=== PATIENT | male | born 1990 | race Caucasian/White ===

== ENCOUNTER 2023-12-12 15:41 | Outpatient (CLI) | payer OTHER, SELFPAY ==
[2023-12-12 18:15] LABS: Basophils Percent Auto 0.6 % (0.2-1.2); Eosinophils Absolute Auto 0.1 K/mm3 (0-0.3); Eosinophils Percent Auto 0.9 % (0-4.4); Hematocrit 40.9 % (42.0-52.0); Hemoglobin 13.4 g/dL (14.0-18.0); Immature Granulocyte Absolute 0.01 K/mm3 (0.00-0.031); Immature Granulocyte Percent A 0.2 % (0-0.5); Lymphocytes Absolute Auto 2.24 K/mm3 (0.9-3.2); Lymphocytes Percent Auto 33.9 % (18.3-44.2); Mean Corpuscular HGB Conc 32.8 g/dl (32-36); Mean Corpuscular Volume 88.5 fl (80-100); Mean Platelet Volume 9.7 fl (7.4-10.4); Monocytes Absolute Auto 0.5 K/mm3 (0.1-0.6); Monocytes Percent Auto 7.9 % (2.6-8.5); Neutrophils Absolute Auto 3.7 K/mm3 (1.3-6.7); Neutrophils Percent Auto 56.5 % (45.5-73.1); Platelet Count Result 257 k/mm3 (150-375); Red Blood Count 4.62 M/mm3 (4.6-6.20); Red Cell Distribution Width 12.2 % (11.5-14.5); White Blood Count 6.6 K/mm3 (4.5-10.0)
[2023-12-12 19:00] LABS: Alanine Aminotransferase 31 U/L (6-50); Albumin Level 4.7 g/dL (3.5-5.1); Alkaline Phosphatase 73 U/L (38-126); Anion Gap 5 mmol/L (8-16); Aspartate Amino Transferase 44 U/L (17-59); Bilirubin,Total 0.5 mg/dL (0.2-1.3); Blood Urea Nitrogen 14 mg/dL (9-20); Calcium 9.6 mg/dL (8.4-10.2); Carbon Dioxide 32 mmol/L (22-30); Chloride 103 mmol/L (98-107); Cholesterol 158 mg/dL (0-200); Estimated Glomerular Filt Rate > 60; Glucose 84 mg/dL (65-110); HDL Direct 68 mg/dL; Potassium 4.5 mmol/L (3.4-5.0); Sodium 140 mmol/L (137-145); Triglycerides 67 mg/dL (<150)
[2023-12-12 19:15] LABS: LDL Cholesterol Direct 74 mg/dL
[2023-12-13 09:43] LABS: Folic Acid 15.7 ng/mL (2.76->20)
== END 2023-12-12 15:42 | disposition home or self-care (01) ==
LOC: ANHGOSHLAB 15:42
PROVIDERS: PCP Internal Medicine; Visit Provider Internal Medicine
DX: Z13.0 Encounter for screening for diseases of the blood and blood-forming organs and certain disorders involving the immune mechanism (principal); Z13.220 Encounter for screening for lipoid disorders; Z13.29 Encounter for screening for other suspected endocrine disorder; Z13.228 Encounter for screening for other metabolic disorders; D64.9 Anemia, unspecified
CPT/HCPCS: 36415; 80053; 80061; 82607; 82746; 85025

== ENCOUNTER 2024-05-21 10:12 | Outpatient (CLI) | payer OTHER, SELFPAY | END 2024-05-21 10:13 | disposition home or self-care (01) | LOC: ANHGOSHLAB 10:13 | PROVIDERS: PCP Internal Medicine; Visit Provider Internal Medicine | DX: D64.9 Anemia, unspecified (principal) | CPT/HCPCS: 36415; 82728 ==

== ENCOUNTER 2024-08-09 10:26 | Outpatient (CLI) | payer OTHER, SELFPAY ==
[2024-08-09 19:00] LABS: Basophils Percent Auto 0.6 % (0.2-1.2); Eosinophils Absolute Auto 0.1 K/mm3 (0-0.3); Eosinophils Percent Auto 1.1 % (0-4.4); Hematocrit 40.7 % (42.0-52.0); Hemoglobin 13.1 g/dL (14.0-18.0); Immature Granulocyte Absolute 0.02 K/mm3 (0.00-0.031); Immature Granulocyte Percent A 0.4 % (0-0.5); Lymphocytes Percent Auto 33.7 % (18.3-44.2); Mean Corpuscular HGB Conc 32.2 g/dl (32-36); Mean Corpuscular Hemoglobin 28.7 pg (26-34); Mean Corpuscular Volume 89.3 fl (80-100); Mean Platelet Volume 9.9 fl (7.4-10.4); Monocytes Absolute Auto 0.5 K/mm3 (0.1-0.6); Monocytes Percent Auto 9.7 % (2.6-8.5); Neutrophils Absolute Auto 2.6 K/mm3 (1.3-6.7); Neutrophils Percent Auto 54.5 % (45.5-73.1); Platelet Count Result 250 k/mm3 (150-375); Red Blood Count 4.56 M/mm3 (4.6-6.20); Red Cell Distribution Width 12.3 % (11.5-14.5); White Blood Count 4.8 K/mm3 (4.5-10.0)
== END 2024-08-09 10:27 | disposition home or self-care (01) ==
LOC: ANHGOSHLAB 10:28
PROVIDERS: PCP Internal Medicine; Visit Provider Internal Medicine
DX: D64.9 Anemia, unspecified (principal)
CPT/HCPCS: 36415; 85025

== ENCOUNTER 2024-08-29 14:25 | Outpatient (CLI) | payer OTHER, SELFPAY ==
[2024-08-29 16:41] LABS: Immature Reticulocyte Fraction 2.2 % (3.0-15.9); Reticulocyte Hemoglobin Conten 32.9 pg (28.2-36.6); Reticulocyte Percent 0.65 % (0.7-4.3); Reticulocytes Absolute 0.03 10^6/uL (0.02-0.10)
[2024-08-29 17:41] LABS: Thyroid Stimulating Hormone 0.835 uIU/mL (0.465-4.680)
[2024-09-04 15:39] LABS: Testosterone Free 73.7 pg/mL (35.0-155.0); Testosterone Total 618 ng/dL (250-1100)
== END 2024-08-29 14:26 | disposition home or self-care (01) ==
LOC: ANHGOSHLAB 14:26
PROVIDERS: PCP Internal Medicine; Visit Provider Internal Medicine
DX: D64.9 Anemia, unspecified (principal)
CPT/HCPCS: 36415; 84402; 84403; 84443; 85046

== ENCOUNTER 2024-11-28 09:59 | Outpatient (CLI) | payer OTHER, SELFPAY ==
[2024-11-28 10:20] LABS: Basophils Percent Auto 0.7 % (0.2-1.2); Eosinophils Percent Auto 1.3 % (0-4.4); Hematocrit 42.1 % (42.0-52.0); Hemoglobin 13.9 g/dL (14.0-18.0); Immature Granulocyte Absolute 0.01 K/mm3 (0.00-0.031); Immature Granulocyte Percent A 0.3 % (0-0.5); Immature Reticulocyte Fraction 2.6 % (3.0-15.9); Lymphocytes Absolute Auto 1.36 K/mm3 (0.9-3.2); Lymphocytes Percent Auto 45.6 % (18.3-44.2); Mean Corpuscular Hemoglobin 29.1 pg (26-34); Mean Corpuscular Volume 88.1 fl (80-100); Mean Platelet Volume 9.2 fl (7.4-10.4); Monocytes Absolute Auto 0.3 K/mm3 (0.1-0.6); Monocytes Percent Auto 11.1 % (2.6-8.5); Neutrophils Absolute Auto 1.2 K/mm3 (1.3-6.7); Platelet Count Result 275 k/mm3 (150-375); Red Blood Count 4.78 M/mm3 (4.6-6.20); Red Cell Distribution Width 11.9 % (11.5-14.5); Reticulocyte Hemoglobin Conten 34.4 pg (28.2-36.6); Reticulocyte Percent 0.75 % (0.7-4.3); Reticulocytes Absolute 0.04 10^6/uL (0.02-0.10)
[2024-11-28 11:17] LABS: Chloride 101 mmol/L (98-107)
[2024-11-28 11:22] LABS: Alanine Aminotransferase 23 U/L (6-50); Albumin Level 4.9 g/dL (3.5-5.1); Alkaline Phosphatase 59 U/L (38-126); Anion Gap 10 mmol/L (4-12); Aspartate Amino Transferase 42 U/L (17-59); Bilirubin,Total 0.9 mg/dL (0.2-1.3); Blood Urea Nitrogen 14 mg/dL (9-20); Calcium 9.5 mg/dL (8.4-10.2); Carbon Dioxide 29 mmol/L (22-30); Estimated Glomerular Filt Rate > 60; Glucose 90 mg/dL (65-110); Potassium 3.9 mmol/L (3.4-5.0); Sodium 140 mmol/L (137-145)
[2024-11-28 11:29] LABS: Iron 123 ug/dL (49-181)
[2024-11-28 11:38] LABS: Percent Iron Saturation 32 % (20-50)
[2024-11-28 12:06] LABS: IFOB Positive Control Positive; Immunochemical Fecal Occult Bl Positive (N)
[2024-11-28 12:22] LABS: Folic Acid 8.6 ng/mL (2.76->20)
--- OUTSIDE RECORDS SUMMARY | 2024-11-29 22:58 | XMS_ITS | Clinical Summary ---
Author Organization [facility] Andrea rosales Bev Address [address] [place] [address] Care Team Providers Care Manufacturing Maintenance Manager Name Role Phone Caesar Dang DO Primary Care Provider Allergies No known active allergies Medications No known medications Active Problems No known active problems Encounters Date Type Department Care Team Description 11/29/2024 External Device Data STL ABSTRACTION Provider, Abstract 11/27/2024 External Device Data STL ABSTRACTION Provider, Abstract 11/20/2024 External Device Data STL ABSTRACTION Provider, Abstract 10/30/2024 External Device Data STL ABSTRACTION Provider, Abstract 10/26/2024 1:30 PM SPECIAL EDUCATION PARAEDUCATOR Office Visit [facility] Oncology and Hematology - [place] [address] [place] [address] Jonny Waters MD Anemia, unspecified type (Primary Dx) 10/26/2024 Orders Only [facility] Oncology and Hematology - [place] [address] [place] [phone] Jonny Waters MD Chronic anemia (Primary Dx) from Last 3 Months Family History Medical History Relation Name Comments No Known Problems Brother No Known Problems Father No Known Problems Mother Relation Name Status Comments Brother Alive Father Alive Mother Alive Social History Tobacco Use Types Packs/Day Years Used Date Smoking Tobacco: Never Smokeless Tobacco: Former Quit: 2017 Tobacco Cessation:Counseling Given: No Alcohol Use Standard Drinks/Week Comments Yes 0 (1 standard drink = 0.6 oz pur e alcohol) Socially Sex and Gender Information Value Date Recorded Sex Assigned at Not on file Legal Sex Male 9:51 AM SPECIAL EDUCATION PARAEDUCATOR Gender Identity Not on file Sexual Orientation Not on file Last Filed Vital Signs Vital Sign Reading Time Taken Comments Blood Pressure 114/73 10/26/2024 1:26 PM SPECIAL EDUCATION PARAEDUCATOR Pulse 64 10/26/2024 1:26 PM SPECIAL EDUCATION PARAEDUCATOR Temperature 36.9 ??C (98.4 ??F) 10/26/2024 1:26 PM CS T Respiratory Rate - - Oxygen Saturation 94% 10/26/2024 1:26 PM SPECIAL EDUCATION PARAEDUCATOR Inhaled Oxygen Concentration - - Weight 68.9 kg (152 lb) 10/26/2024 1:26 PM SPECIAL EDUCATION PARAEDUCATOR Height 182.9 cm (6') 10/26/2024 1:26 PM SPECIAL EDUCATION PARAEDUCATOR Body Mass Index 20.61 10/26/2024 1:26 PM SPECIAL EDUCATION PARAEDUCATOR Plan of Treatment Upcoming Encounters Date Type Department Care Team (Late st Contact Info) Description 12/04/2024 2:30 PM SPECIAL EDUCATION PARAEDUCATOR Office Visit [facility] Oncology and Hematology [facility] [address] [facility] [address] [place] [address] Deon Scruggs MD [address] [facility] [address] [place] [address] Health Maintenance Due Date Last Done Comments DTAP/TDAP/TD VACCINES (1 - Tdap) 2010 HEPATITIS B VACCINES (1 of 3 - 19+ 3-dose series) 2010 INFLUENZA VACCINE (#1) 2024 Preventative Visit- Commercial 11/07/2024 HPV VACCINES Aged Out No longer eligi ble based on patient's age to complete this topic Insurance AETNA CHOICE POS II Care Teams Manufacturing Maintenance Manager Relationship Specialty Start Date End Date Caesar Dang DO [address] [facility] [address] [place] [address] PCP - General Internal Medicine 10/26/24
--- OUTSIDE RECORDS SUMMARY | 2024-11-29 22:58 | XMS_ITS | Encounter Summary ---
Author Organization [facility] Address [address] [place] [address] Care Team Providers Care Top Tile Decorator Name Role Phone Caesar Dang DO Primary Care Provider Encounter Details Date Type Department Care Team (Late st Contact Info) Description 11/27/2024 External Device Data STL ABSTRACTION Provider, Abstract NO ADDRESS ON FILE Social History Tobacco Use Types Packs/Day Years Used Date Smoking Tobacco: Never Smokeless Tobacco: Former Quit: 2017 Alcohol Use Standard Drinks/Week Comments Yes 0 (1 standard drink = 0.6 oz pur e alcohol) Socially Sex and Gender Information Value Date Recorded Sex Assigned at Not on file Legal Sex Male 9:51 AM FURNITURE SPRAYER Gender Identity Not on file Sexual Orientation Not on file documented as of this encounter Plan of Treatment Upcoming Encounters Date Type Department Care Team (Late st Contact Info) Description 12/04/2024 2:30 PM FURNITURE SPRAYER Office Visit [facility] Oncology and Hematology - [place] [address] [facility] [address] [place] [address] Deon Scruggs MD [address] [facility] [address] [place] [address] documented as of this encounter Visit Diagnoses Not on filedocumented in this encounter Care Teams Top Tile Decorator Relationship Specialty Start Date End Date Caesar Dang DO [address] [facility] [address] [place] [phone] PCP - General Internal Medicine 10/26/24 documented as of this encounter
== END 2024-11-28 10:00 | disposition home or self-care (01) ==
PROVIDERS: Internal Medicine Medical Oncology; PCP Internal Medicine; Visit Provider Internal Medicine Hematology & Oncology
DX: D64.9 Anemia, unspecified (principal)
CPT/HCPCS: 36415; 80053; 82274; 82607; 82728; 82746; 83540; 83550; 85025; 85046

== ENCOUNTER 2025-04-30 15:30 | Outpatient (CLI) | payer OTHER, SELFPAY ==
[2025-04-30 19:02] LABS: Basophils Percent Auto 0.7 % (0.2-1.2); Eosinophils Absolute Auto 0.1 K/mm3 (0-0.3); Eosinophils Percent Auto 2.2 % (0-4.4); Hemoglobin 12.3 g/dL (14.0-18.0); Immature Granulocyte Absolute 0.01 K/mm3 (0.00-0.031); Immature Granulocyte Percent A 0.2 % (0-0.5); Lymphocytes Absolute Auto 1.76 K/mm3 (0.9-3.2); Lymphocytes Percent Auto 29.7 % (18.3-44.2); Mean Corpuscular HGB Conc 32.4 g/dl (32-36); Mean Corpuscular Hemoglobin 28.9 pg (26-34); Mean Corpuscular Volume 89.4 fl (80-100); Mean Platelet Volume 10.1 fl (7.4-10.4); Monocytes Absolute Auto 0.4 K/mm3 (0.1-0.6); Monocytes Percent Auto 6.4 % (2.6-8.5); Neutrophils Absolute Auto 3.6 K/mm3 (1.3-6.7); Neutrophils Percent Auto 60.8 % (45.5-73.1); Platelet Count Result 249 k/mm3 (150-375); Red Blood Count 4.25 M/mm3 (4.6-6.20); Red Cell Distribution Width 12.5 % (11.5-14.5); White Blood Count 5.9 K/mm3 (4.5-10.0)
[2025-04-30 20:51] LABS: Alanine Aminotransferase 29 U/L (6-50); Albumin Level 4.6 g/dL (3.5-5.1); Alkaline Phosphatase 51 U/L (38-126); Anion Gap 7 mmol/L (4-12); Aspartate Amino Transferase 59 U/L (17-59); Bilirubin,Total 0.5 mg/dL (0.2-1.3); Blood Urea Nitrogen 18 mg/dL (9-20); Calcium 9.6 mg/dL (8.4-10.2); Carbon Dioxide 30 mmol/L (22-30); Chloride 101 mmol/L (98-107); Estimated Glomerular Filt Rate > 60; Glucose 87 mg/dL (65-110); Potassium 3.9 mmol/L (3.4-5.0); Sodium 138 mmol/L (137-145); Total Protein 7.5 g/dL (6.3-8.2)
[2025-05-01 11:49] LABS: Iron 65 ug/dL (49-181)
[2025-05-01 11:59] LABS: Percent Iron Saturation 16 % (20-50)
== END 2025-04-30 15:31 | disposition home or self-care (01) ==
LOC: ANHBWCLAB 15:31
PROVIDERS: PCP Internal Medicine; Visit Provider Clinical Nurse Specialist
DX: D64.9 Anemia, unspecified (principal); K55.1 Chronic vascular disorders of intestine; R40.4 Transient alteration of awareness; R74.8 Abnormal levels of other serum enzymes
CPT/HCPCS: 36415; 80053; 82607; 82728; 83540; 83550; 84443; 85025

== ENCOUNTER 2025-08-12 14:39 | Outpatient (CLI) | payer OTHER, SELFPAY ==
[2025-08-12 14:48] LABS: Hematocrit 36.5 % (42.0-52.0); Hemoglobin 11.9 g/dL (14.0-18.0); Immature Granulocyte Percent A 0.1 % (0-0.5); Lymphocytes Absolute Auto 1.77 K/mm3 (0.9-3.2); Mean Corpuscular HGB Conc 32.6 g/dl (32-36); Mean Corpuscular Hemoglobin 29.2 pg (26-34); Mean Corpuscular Volume 89.5 fl (80-100); Nucleated Red Blood Cells Absolute Auto 0.000 K/mm3 (0.0-0.012); Nucleated Red Blood Cells Perc 0.0 % (0.0-0.2); Platelet Count Result 300 k/mm3 (150-375); Red Blood Count 4.08 M/mm3 (4.6-6.20); White Blood Count 8.3 K/mm3 (4.5-10.0)
--- OUTSIDE RECORDS SUMMARY | 2025-08-12 15:24 | XMS_ITS | Clinical Summary ---
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 Recently diagnosed last month with similar admission. CT AP with dilation of stomach and duodenum prox to SMA. Surgery consulted in ED, no surgical intervetion and rec'd NG tube with OP f/u for intervention. Sxs improved with NG suction - s/p NG tube, now tolerating FLD - symptomatic control --Small bowel follow through done that showed a large amount of contrast that remains in the stomach - MIS following, plan for outpatient follow-up to discuss surgical intervention with duodenojejunostomy pending clinical improvement --GI consulted for EGD, planning for outpatient follow up and arrangement with outpatient nutrition. - RD consulted and patient education provided on FLD. Assessment & Plan (03/05/2025 12:31 PM CDT): Presenting with N/V/abd pain 2/2 SMA syndrome. Recently diagnosed last month with similar admission. CT AP with dilation of stomach and duodenum prox to SMA. Surgery consulted in ED, no surgical intervetion and rec'd NG tube with OP f/u for intervention. Sxs improved with NG suction - NT Tube clamped - NS 100cc/hr - symptomatic control --Small bowel follow through done that showed a large amount of contrast that remains in the stomach -Follow up with MIS this morning. Planning outpatient surgery follow up for intervention --GI consulted for EGD, inpatient vs outpatient Assessment & Plan (03/04/2025 10:53 AM CDT): Presenting with N/V/abd pain 2/2 SMA syndrome. Recently diagnosed last month with similar admission. CT AP with dilation of stomach and duodenum prox to SMA. Surgery consulted in ED, no surgical intervetion and rec'd NG tube with OP f/u for intervention. Sxs improved with NG suction - cont NG tube LIS overnight - NS 100cc/hr - symptomatic control -Follow up with MIS this morning. Likely outpatient surgery follow up for intervention Assessment & Plan (03/03/2025 11:16 PM CDT): Presenting with N/V/abd pain 2/2 SMA syndrome. Recently diagnosed last month with similar admission. CT AP with dilation of stomach and duodenum prox to SMA. Surgery consulted in ED, no surgical intervetion and rec'd NG tube with OP f/u for intervention. Sxs improved with NG suction - cont NG tube LIS overnight - NS 100cc/hr - symptomatic control - OP surgery follow up for intervention Family History Medical History Relation Name Comments Hypertension Father No Known Problems Mother Relation Name Status Comments Father Mother Social History Tobacco Use Types Packs/Day Years Used Date Smoking Tobacco: Never Smokeless Tobacco: Never Tobacco Cessation:Counseling Given: No AUDIT-C Answer Date Recorded Q1: How often do you have a drink containing alc ohol? 2-4 times a month 04/02/2025 Q2: How many drinks containi ng alcohol do you have on a typical day when you are drinking? 3 or 4 04/02/2025 Q3: How often do you have si x or more drinks on one occasion? Never 04/02/2025 Personal Safety Answer Date Recorded Have you ever been in or are you currently in a harmful physical or emotional relationship or is someone making you feel afraid or unsafe? Denies 04/02/2025 Sex and Gender Information Value Date Recorded Sex Assigned at Not on file Legal Sex Male 2:31 PM CDT Gender Identity Not on file Sexual Orientation Not on file Obstetrics History Last Filed Vital Signs Vital Sign Reading Time Taken Comments Blood Pressure 114/70 04/02/2025 1:55 PM CDT Pulse 53 04/02/2025 1:55 PM CDT Temperature 36.3 C (97.3 F) 04/02/2025 1:25 PM CDT Respiratory Rate 12 04/02/2025 1:25 PM CDT Oxygen Saturation 94% 04/02/2025 1:55 PM CDT Inhaled Oxygen Concentration - - Weight 68 kg (150 lb) 04/30/2025 6:27 PM CDT Height 182.9 cm (6') 04/30/2025 6:27 PM CDT Body Mass Index 20.34 04/30/2025 6:27 PM CDT Plan of Treatment Scheduled Procedures Name Priority Associated Diagnoses Date/Ti me ESOPHAGOGASTRODUODENOSCOPY Open Access Superior mesenteric artery syndrome Health Maintenance Due Date Last Done Comments Depression Screening 1991 Hepatitis C Screening 1991 DTaP/Tdap/Td Vaccine (1 - Tdap) 2002 Varicella Vaccines (1 of 2 - 13+ 2-dose series) 2004 Hepatitis B Screening 2009 Regular Well Visit/Exam 18-64 2009 HPV Vaccines (1 - 3-dose SCD M series) 2018 Influenza Vaccine (#1) 2025 Pneumococcal vaccine <65 Aged Out No longer eligible based on patient's age to complete this topic Insurance [facility] AETNA SIGNATURE [facility] AETNA SIGNATURE Advance Directives For more information, please contact: [phone] * Full Code (Latest Code Status on File) Date Activated Date Inactivated Comments 04/02/2025 12:16 PM 04/02/2025 6:04 PM * Full Code Date Activated Date Inactivated Comments 03/03/2025 10:56 PM 03/06/2025 3:31 PM Care Teams Strip Catcher Relationship Specialty Start Date End Date Caesar Dang DO PCP - General Internal Medicine 03/03/25
--- OUTSIDE RECORDS SUMMARY | 2025-08-12 15:24 | XMS_ITS | Clinical Summary ---
[facility] Organization [facility] Address [address] [place] [address] Care Team Providers Care Control Board Operator Name Role Phone Caesar Dang DO Primary Care Provider Allergies No known active allergies Medications No known medications Active Problems No known active problems Encounters Date Type Department Care Team Description 07/16/2025 External Device Data STL ABSTRACTION Provider, Abstract 06/25/2025 External Device Data STL ABSTRACTION Provider, Abstract 06/12/2025 External Device Data STL ABSTRACTION Provider, Abstract from Last 3 Months Family History Medical History Relation Name Comments No Known Problems Brother No Known Problems Father No Known Problems Mother Relation Name Status Comments Brother Alive Father Alive Mother Alive Social History Tobacco Use Types Packs/Day Years Used Date Smoking Tobacco: Never Smokeless Tobacco: Former Quit: 2017 Tobacco Cessation:Counseling Given: Not Answered Alcohol Use Standard Drinks/Week Comments Yes 0 (1 standard drink = 0.6 oz pur e alcohol) Socially Sex and Gender Information Value Date Recorded Sex Assigned at Not on file Legal Sex Male 9:51 AM FLOOR REPRESENTATIVE Gender Identity Not on file Sexual Orientation Not on file Last Filed Vital Signs Vital Sign Reading Time Taken Comments Blood Pressure 99/71 12/04/2024 2:20 PM FLOOR REPRESENTATIVE Pulse 73 12/04/2024 2:20 PM FLOOR REPRESENTATIVE Temperature 36.9 C (98.4 F) 12/04/2024 2:20 PM FLOOR REPRESENTATIVE Respiratory Rate 17 12/04/2024 2:20 PM FLOOR REPRESENTATIVE Oxygen Saturation 97% 12/04/2024 2:20 PM FLOOR REPRESENTATIVE Inhaled Oxygen Concentration - - Weight 71.1 kg (156 lb 12.8 oz) 12/04/2024 2:20 PM FLOOR REPRESENTATIVE Height 182.9 cm (6') 10/26/2024 1:26 PM FLOOR REPRESENTATIVE Body Mass Index 21.27 10/26/2024 1:26 PM FLOOR REPRESENTATIVE Plan of Treatment Upcoming Encounters Date Type Department Care Team (Late st Contact Info) Description 08/12/2025 3:45 PM CDT Office Visit [facility] Oncology and Hematology - [place] [address] [facility] [address] [place] [address] Deon Scruggs MD [address] [facility] [address] [place] [address] Health Maintenance Due Date Last Done Comments DTAP/TDAP/TD VACCINES (1 - Tdap) 2010 HEPATITIS B VACCINES (1 of 3 - 19+ 3-dose series) 12/09 HPV VACCINES (1 - 3-dose SCDM series) 2018 INFLUENZA VACCINE (#1) 2025 Insurance AETNA CHOICE POS II Care Teams Control Board Operator Relationship Specialty Start Date End Date Caesar Dang DO [address] [facility] [address] [place] [address] PCP - General Internal Medicine 10/26/24
== END 2025-08-12 14:40 | disposition home or self-care (01) ==
LOC: ANHLAB 14:40
PROVIDERS: PCP Internal Medicine; Visit Provider Internal Medicine Hematology & Oncology
DX: D64.9 Anemia, unspecified (principal)
CPT/HCPCS: 36415; 85025

== ENCOUNTER 2025-08-19 13:49 | Outpatient (CLI) | payer OTHER, SELFPAY ==
--- OUTSIDE RECORDS SUMMARY | 2025-08-19 15:02 | XMS_ITS | Clinical Summary ---
Author Organization [facility] Andrea rosales Kyleedagoberto Address [address] [place] [address] Care Team Providers Care Silk Spreader Name Role Phone Caesar Dang DO Primary Care Provider Allergies No known active allergies Medications No known medications Active Problems No known active problems Encounters Date Type Department Care Team Description 08/12/2025 3:45 PM CDT Office Visit [facility] Oncology and Hematology - [place] [address] [address] Deon Scruggs MD Chronic anemia (Primary Dx) 07/16/2025 External Device Data STL ABSTRACTION Provider, [...] on file Legal Sex Male 9:51 AM PRESS SECRETARY Gender Identity Not on file Sexual Orientation Not on file Last Filed Vital Signs Vital Sign Reading Time Taken Comments Blood Pressure 120/82 08/12/2025 3:28 PM CDT Pulse 68 08/12/2025 3:28 PM CDT Temperature 36.7 C (98.1 F) 08/12/2025 3:28 PM CDT Respiratory Rate 12 08/12/2025 3:28 PM CDT Oxygen Saturation 97% 08/12/2025 3:28 PM CDT Inhaled Oxygen Concentration - - Weight 74.5 kg (164 lb 3.2 oz) 08/12/2025 3:28 P M CDT Height 182.9 cm (6') 10/26/2024 1:26 PM PRESS SECRETARY Body Mass Index 22.27 10/26/2024 1:26 PM PRESS SECRETARY Plan of Treatment Upcoming Encounters Date Type Department Care Team (Late st Contact Info) Description 08/21/2025 4:35 PM CDT Telephone Check Up [facility] Oncology and Hematology - [place] [address] [facility] [address] [place] [address] Deon Scruggs MD [address] [facility] [address] [place] [address] Health Maintenance Due Date Last Done Comments DTAP/TDAP/TD VACCINES (1 - Tdap) 2010 HEPATITIS B VACCINES (1 of 3 - 19+ 3-dose series) 12/09 HPV VACCINES (1 - 3-dose SCDM series) 2018 Preventative Visit- Commercial 11/07/2024 INFLUENZA VACCINE (#1) 2025 Insurance AETNA CHOICE POS II Care Teams Silk Spreader Relationship Specialty Start Date End Date Caesar Dang DO [address] [facility] [address] [place] [address] PCP - General Internal Medicine 10/26/24
--- OUTSIDE RECORDS SUMMARY | 2025-08-19 15:02 | XMS_ITS | Clinical Summary ---
Author Organization [facility] al Address [address] [place] [address] Care Team Providers Care Diesel Mechanic Construction Name Role Phone LaurenceCaesar Abdi Primary Care Provider Allergies No known active [...] patient's age to complete this topic Insurance [facility] AETNA SIGNATURE [facility] AETNA SIGNATURE Advance Directives For more information, please contact: [phone] * Full Code (Latest Code Status on File) Date Activated Date Inactivated Comments 04/02/2025 12:16 PM 04/02/2025 6:04 PM * Full Code Date Activated Date Inactivated Comments 03/03/2025 10:56 PM 03/06/2025 3:31 PM Care Teams Diesel Mechanic Construction Relationship Specialty Start Date End Date Caesar Dang DO PCP - General Internal Medicine 03/03/25
[2025-08-19 16:21] LABS: Iron 47 ug/dL (49-181)
[2025-08-19 16:31] LABS: Percent Iron Saturation 13 % (20-50)
[2025-08-19 17:03] LABS: Ferritin 111.00 ng/mL (17.9-464)
[2025-08-19 17:29] LABS: Vitamin B12 606.0 pg/mL (239-931)
== END 2025-08-19 13:50 | disposition home or self-care (01) ==
PROVIDERS: PCP Internal Medicine; Visit Provider Internal Medicine Hematology & Oncology
DX: D64.9 Anemia, unspecified (principal)
CPT/HCPCS: 36415; 82607; 82728; 82746; 83540; 83550; 83921; 84238

== ENCOUNTER 2025-09-12 18:33 | Inpatient (IN) | payer OTHER, SELFPAY ==
[2025-09-12] VITALS (20 sets, daily range): BP systolic 116–132; BP diastolic 68–91; PULSE 58–83; RESP 13–22; TEMP 37.4; O2SAT 12–100; BMI 22.4
--- NOTE | ~2025-09-12 | CT_ITS ---
CT brain wo con HISTORY:possible seizure activity COMPARISON: None. TECHNIQUE: Axial images were obtained of the head without intravenous contrast. FINDINGS: No acute intracranial hemorrhage, mass effect or midline shift. No extra-axial fluid collections. There arebecause of thickening of the maxillary sinuses and ethmoidand sphenoid sinuses.Mastoid air cells are clear. IMPRESSION: No acute intracranial hemorrhage or extra axial fluid collections. Paranasal sinus disease. All CT scans at this facility are performed using low dose modulation techniques as appropriate to perform exam including the following: automated exposure control; use of iterative reconstruction technique; adjustment of the mA and/or kV according to patient size (this includes techniques or standardized protocols for targeted exams where dose is matched to indication/reason for exam). Reviewed, dictated and finalized at location S. STMENT SALES ASSISTANT IMPRESSION: No acute intracranial hemorrhage or extra axial fluid collections. Paranasal sinus disease. All CT scans at this facility are performed using low dose modulation techniqu es as appropriate to perform exam including the following: automated exposure c ontrol; use of iterative reconstruction technique; adjustment of the mA and/or kV according to patient size (this includes techniques or standardized protocol s for targeted exams where dose is matched to indication/reason for exam).
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
--- NOTE | 2025-09-12 19:19 | ECG_ITS ---
Test Date: 2025-09-12 19:44:34 Measurements Intervals [place] Rate: 75 P: 58 AR: 182 QRS: 30 QRSD: 109 T: 43 QT: 402 QTc: 450 Interpretive Statements SINUS RHYTHM VOLTAGE CRITERIA FOR LVH [MEETS CRITERIA IN ONE OF: R(aVL), S(V1), R(V5), R(V5/V6)+S(V1)] NONSPECIFIC T-WAVE ABNORMALITY No previous ECG available for comparison Electronically Signed On 09-12-2025 21:27:10 SAFETY DEPOSIT BOXES CUSTODIAN by Viktoria Soto M.D.
[2025-09-12] MEDS: MIDAZOLAM HCL (*CRX) 2 MG/2 ML VIAL 10 MG (19:37)
[2025-09-12] MEDS: levETIRAcetam 1500MG/NACL100ML 1,500 MG/100 ML BAG 400 MG (19:39)
[2025-09-12] MEDS: levETIRAcetam 1500MG/NACL100ML 1,500 MG/100 ML BAG 400 MG IVPB (20:02)
[2025-09-12 20:06] LABS: Alanine Aminotransferase 41 U/L (6-50); Albumin Level 5.3 g/dL (3.5-5.1); Alkaline Phosphatase 61 U/L (38-126); Anion Gap 23 mmol/L (4-12); Aspartate Amino Transferase 39 U/L (17-59); Bilirubin,Total 0.5 mg/dL (0.2-1.3); Blood Urea Nitrogen 12 mg/dL (9-20); Calcium 9.5 mg/dL (8.4-10.2); Carbon Dioxide 16 mmol/L (22-30); Chloride 101 mmol/L (98-107); Estimated CRCL calculation 113 ml/min; Estimated Glomerular Filt Rate > 60; Glucose 122 mg/dL (65-110); Magnesium 2.3 mg/dL (1.6-2.3); Potassium 3.4 mmol/L (3.4-5.0); Sodium 140 mmol/L (137-145); Total Protein 8.3 g/dL (6.3-8.2)
[2025-09-12 20:20] LABS: Troponin I < 0.012 ng/mL (0.000-0.034)
[2025-09-12 20:27] LABS: Hematocrit 41.8 % (42.0-52.0); Hemoglobin 13.3 g/dL (14.0-18.0); Immature Granulocyte Percent A 0.3 % (0-0.5); Lymphocytes Absolute Auto 2.25 K/mm3 (0.9-3.2); Mean Corpuscular HGB Conc 31.8 g/dl (32-36); Mean Corpuscular Hemoglobin 28.5 pg (26-34); Mean Corpuscular Volume 89.7 fl (80-100); Nucleated Red Blood Cells Absolute Auto 0.000 K/mm3 (0.0-0.012); Nucleated Red Blood Cells Perc 0.0 % (0.0-0.2); Platelet Count Result 263 k/mm3 (150-375); Red Blood Count 4.66 M/mm3 (4.6-6.20); White Blood Count 8.8 K/mm3 (4.5-10.0)
--- OUTSIDE RECORDS SUMMARY | 2025-09-12 21:18 | XMS_ITS | Clinical Summary ---
Author Organization [facility] al Address [address] [place] [address] Care Team Providers Care Knowledge Management Advisor Name Role Phone LaurenceCaesar Abdi Primary Care [...] patient's age to complete this topic Insurance [facility] AETNA SIGNATURE [facility] [employer] SIGNATURE Advance Directives For more information, please contact: [phone] * Full Code (Latest Code Status on File) Date Activated Date Inactivated Comments 04/02/2025 12:16 PM 04/02/2025 6:04 PM * Full Code Date Activated Date Inactivated Comments 03/03/2025 10:56 PM 03/06/2025 3:31 PM Care Teams Knowledge Management Advisor Relationship Specialty Start Date End Date Caesar Dang DO PCP - General Internal Medicine 03/03/25
--- OUTSIDE RECORDS SUMMARY | 2025-09-12 21:18 | XMS_ITS | Clinical Summary ---
Author Organization [facility] Andrea rosales Bev Address [address] [place] [address] Care Team Providers Care Weed Control Inspector Name Role Phone Caesar Dang DO Primary Care Provider Allergies No known active allergies Medications No known medications Active Problems No known active problems Encounters Date Type Department Care Team Description 09/03/2025 External Device Data STL ABSTRACTION Provider, Abstract 08/28/2025 4:30 PM CDT Telephone Check Up [facility] Oncology and Hematology - Devin [address] [place] [address] Deon Scruggs MD Chronic anemia (Primary Dx) 08/27/2025 External Device Data STL ABSTRACTION Provider, Abstract 08/27/2025 Orders Only [facility] Oncology and Hematology - Devni [address] [place] [address] Deon Scruggs MD 08/21/2025 Orders Only [facility] Oncology and Hematology - [place] [address] [place] [id number] Deon Scruggs MD 08/20/2025 Orders Only [facility] Oncology and Hematology - Devin [address] [place] [address] Deon Scruggs MD 08/12/2025 3:45 PM CDT Office Visit [facility] Oncology and Hematology - [place] [place] [id number] Deon Scruggs MD Chronic anemia (Primary Dx) [...] on file Legal Sex Male 9:51 AM RADIATION THERAPIST Gender Identity Not on file Sexual Orientation [...] Height 182.9 cm (6') 10/26/2024 1:26 PM RADIATION THERAPIST Body Mass Index 22.27 10/26/2024 1:26 PM RADIATION THERAPIST Plan of Treatment Upcoming Encounters Date Type Department Care Team (Late st Contact Info) Description 12/25/2025 2:15 PM RADIATION THERAPIST Office Visit [facility] Oncology and Hematology - Devin [address] [facility] [address] [place] [address] Deon Scruggs MD [address] [facility] [address] [place] [address] Health Maintenance Due Date Last Done Comments DTAP/TDAP/TD VACCINES (1 - Tdap) 2010 HEPATITIS B VACCINES (1 of 3 - 19+ 3-dose series) 12/09 HPV VACCINES (1 - 3-dose SCDM series) 2018 INFLUENZA VACCINE (#1) 2025 Procedures Procedure Name Priority Date/Time Associated Diagnosis Comments METHYLMALONIC ACID Routine 08/19/2025 12 :49 PM CDT CHG SOLUBLE TRANSFERRIN RECEPTOR Routine 08/19/2025 7:54 AM CDT IRON, TIBC, AND PERCENT SATURATION Routine 08/19/2025 7:41 AM CDT from Last 3 Months Results * METHYLMALONIC ACID (08/19/2025 12:49 PM CDT) Blood us Deon Scruggs MD CHEMISTRY ORDERABLES Final Resu lt * CHG SOLUBLE TRANSFERRIN RECEPTOR (08/19/2025 7:54 AM CDT) us Deon Scruggs MD CHG - LABORATORY Final Result * IRON, TIBC, AND PERCENT SATURATION (08/19/2025 7:41 AM CDT) Blood us Deon Scruggs MD CHEMISTRY ORDERABLES Final Resu lt from Last 3 Months Insurance AETNA CHOICE POS II Care Teams Weed Control Inspector Relationship Specialty Start Date End Date Caesar Dang DO [address] [address] PCP - General Internal Medicine 10/26/24
[2025-09-12] MEDS: SODIUM CHLORIDE 0.9% IV 1,000 ML 999 ML IV CONT (21:21)
--- NOTE | 2025-09-12 21:38 | PC.NURSE ---
Pt now A&Ox4, remains drowsy, answers all questions appropriately. Pt updated, family at bedside also updated. Pt reports slight headache, IV fluids infusing. Will reassess headache after fluids. Call light in reach. No further requests or orders at this time. Waiting admission.
[2025-09-12] MEDS: ACETAMINOPHEN 500 MG TABLET 1000 MG PO (22:47)
--- NOTE | 2025-09-12 23:15 | ADMGEN ---
This patient, Erickson Lugo, was admitted to 3 [facility] Surg Room 302-01. Patient/family oriented to hospital policies and general routines including ID bracelet, bed and alarms, visiting hours, pain management, procedures, bathroom and other care routines, personal items, smoking policy, room service/diet, and visiting hours. Information on how to activate the Rapid Response Team has been discussed. Patient/Family are encouraged to report perceived risks to care and to ask questions if they do not understand what they are told or what they should do.
[2025-09-13] VITALS (10 sets, daily range): BP systolic 101–107; BP diastolic 56–59; PULSE 55–84; RESP 16–18; TEMP 36.3–37.4; O2SAT 97–99
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
[2025-09-13 05:34] LABS: Cannabinoid Screen Urine Positive (Negative)
[2025-09-13 06:20] LABS: Hematocrit 36.8 % (42.0-52.0); Hemoglobin 12.0 g/dL (14.0-18.0); Immature Granulocyte Percent A 0.3 % (0-0.5); Lymphocytes Absolute Auto 1.16 K/mm3 (0.9-3.2); Mean Corpuscular HGB Conc 32.6 g/dl (32-36); Mean Corpuscular Hemoglobin 28.7 pg (26-34); Mean Corpuscular Volume 88.0 fl (80-100); Nucleated Red Blood Cells Absolute Auto 0.000 K/mm3 (0.0-0.012); Nucleated Red Blood Cells Perc 0.0 % (0.0-0.2); Platelet Count Result 226 k/mm3 (150-375); Red Blood Count 4.18 M/mm3 (4.6-6.20); White Blood Count 10.7 K/mm3 (4.5-10.0)
[2025-09-13 06:51] LABS: Alanine Aminotransferase 24 U/L (6-50); Albumin Level 4.2 g/dL (3.5-5.1); Alkaline Phosphatase 52 U/L (38-126); Anion Gap 5 mmol/L (4-12); Aspartate Amino Transferase 40 U/L (17-59); Bilirubin,Total 1.1 mg/dL (0.2-1.3); Blood Urea Nitrogen 9 mg/dL (9-20); Calcium 8.8 mg/dL (8.4-10.2); Carbon Dioxide 27 mmol/L (22-30); Chloride 105 mmol/L (98-107); Estimated CRCL calculation 129 ml/min; Estimated Glomerular Filt Rate > 60; Glucose 84 mg/dL (65-110); Magnesium 2.0 mg/dL (1.6-2.3); Potassium 3.9 mmol/L (3.4-5.0); Sodium 137 mmol/L (137-145); Total Protein 7.0 g/dL (6.3-8.2)
[2025-09-13] MEDS: levETIRAcetam Tablet 250 MG, levETIRAcetam Tablet 500 MG 750 MG PO ×2 (08:30→21:17)
[2025-09-13] MEDS: ASCORBIC ACID 500 MG TABLET PO (08:30)
[2025-09-13] MEDS: FERROUS SULFATE 325 MG TABLET PO (08:31)
--- NOTE | 2025-09-13 23:33 | ECG_ITS ---
Test Date: 2025-09-13 23:50:02 Measurements Intervals [place] Rate: 56 P: 41 MD: 150 QRS: 38 QRSD: 114 T: 46 QT: 418 QTc: 404 Interpretive Statements SINUS BRADYCARDIA MODERATE INTRAVENTRICULAR CONDUCTION DELAY [110+ ms QRS DURATION] VOLTAGE CRITERIA FOR LVH [MEETS CRITERIA IN ONE OF: R(aVL), S(V1), R(V5), R(V5/V6)+S(V1)] ABNORMAL ECG Compared to ECG 09/12/2025 19:44:34 Intraventricular conduction delay now present Sinus rhythm no longer present T-wave abnormality no longer present Electronically Signed On 09-14-2025 08:31:57 PAPER COATING SUPERVISOR by Kishan Weiner M.D.
[2025-09-14] VITALS: PULSE 54
[2025-09-14 01:31] LABS: Anion Gap 6 mmol/L (4-12); Blood Urea Nitrogen 7 mg/dL (9-20); Calcium 9.0 mg/dL (8.4-10.2); Carbon Dioxide 29 mmol/L (22-30); Chloride 102 mmol/L (98-107); Estimated CRCL calculation 108 ml/min; Estimated Glomerular Filt Rate > 60; Glucose 91 mg/dL (65-110); Magnesium 2.0 mg/dL (1.6-2.3); Potassium 3.7 mmol/L (3.4-5.0); Sodium 137 mmol/L (137-145)
[2025-09-14 04:00] VITALS: PULSE 42
[2025-09-14 05:42] VITALS: BP 110/70; PULSE 76; RESP 14; TEMP 36.6; O2SAT 99
[2025-09-14 06:05] LABS: Hematocrit 38.3 % (42.0-52.0); Hemoglobin 12.4 g/dL (14.0-18.0); Immature Granulocyte Percent A 0.4 % (0-0.5); Lymphocytes Absolute Auto 1.13 K/mm3 (0.9-3.2); Mean Corpuscular HGB Conc 32.4 g/dl (32-36); Mean Corpuscular Hemoglobin 28.6 pg (26-34); Mean Corpuscular Volume 88.2 fl (80-100); Nucleated Red Blood Cells Absolute Auto 0.000 K/mm3 (0.0-0.012); Nucleated Red Blood Cells Perc 0.0 % (0.0-0.2); Platelet Count Result 217 k/mm3 (150-375); Red Blood Count 4.34 M/mm3 (4.6-6.20); White Blood Count 9.0 K/mm3 (4.5-10.0)
[2025-09-14 06:32] LABS: Anion Gap 7 mmol/L (4-12); Blood Urea Nitrogen 6 mg/dL (9-20); Calcium 9.1 mg/dL (8.4-10.2); Carbon Dioxide 30 mmol/L (22-30); Chloride 102 mmol/L (98-107); Estimated CRCL calculation 114 ml/min; Estimated Glomerular Filt Rate > 60; Glucose 84 mg/dL (65-110); Potassium 3.8 mmol/L (3.4-5.0); Sodium 139 mmol/L (137-145)
[2025-09-14 06:49] LABS: Procalcitonin 0.1 ng/mL
[2025-09-14 08:00] VITALS: PULSE 64
[2025-09-14] MEDS: FERROUS SULFATE 325 MG TABLET PO (08:49)
[2025-09-14] MEDS: ASCORBIC ACID 500 MG TABLET PO (08:49)
[2025-09-14] MEDS: levETIRAcetam Tablet 250 MG, levETIRAcetam Tablet 500 MG 750 MG PO (08:50)
[2025-09-14 12:00] VITALS: PULSE 59
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
== END 2025-09-14 13:24 | disposition home or self-care (01) | DRG 101 ==
LOC: ANHED 19:50 → ANH3MEDSUR 22:09
PROVIDERS: Nurse Practitioner; Nurse Practitioner Gerontology; Admitting Provider Family Medicine; Emergency Provider Student in an Organized Health Care Education/Training Program; PCP Internal Medicine; Visit Provider General Practice
DX: G40.409 Other generalized epilepsy and epileptic syndromes, not intractable, without status epilepticus (principal); E87.21 Acute metabolic acidosis; K55.1 Chronic vascular disorders of intestine; D50.9 Iron deficiency anemia, unspecified; F43.89 Other reactions to severe stress
CPT/HCPCS: 36415; 70450; 80048; 80053; 80307; 82948; 83605; 83735; 84100; 84145; 84484; 85025; 93005; 95816; 96374; 99285; A9270; J1953; J2250; J7030